=== PATIENT | male | born 1995 | race Asian ===

== ENCOUNTER 2017-03-26 20:55 | Emergency (ER) | payer OTHER ==
[2017-03-26 21:05] VITALS: TEMP 36.3
[2017-03-26 21:51] LABS: BASO % 0.2 %; BASO ABS # 0.03 K/uL (0-0.2); COMPLETE YES; EOS % 0.1 %; HEMATOCRIT 46.7 % (42-52); IG% 0.4 %; LYMPH % 12.9 %; LYMPH ABS # 2.01 K/uL (1.2-3.4); MEAN CELL VOLUME 85.1 fL (80-100); MEAN CORPUSCULAR HEMOGLOBIN 29.5 pg (25-34); MEAN CORPUSCULAR HGB CONC 34.7 g/dl (32-36); MEAN PLATELET VOLUME 10.2 fL (7.4-10.4); MONO % 4.2 %; NEUT % 82.2 %; PLATELET COUNT 246 K/uL (130-400); RED BLOOD COUNT 5.49 M/uL (4.7-6.1); WHITE BLOOD COUNT 15.62 K/uL (4.8-10.8)
[2017-03-26] MEDS ORDERED: HALOPERIDOL LACTATE 5 MG/ML 1 ML VIAL IM STA (21:56)
[2017-03-26] MEDS ORDERED: LORAZEPAM 2 MG/ML 1 ML VIAL IM STA (21:56)
--- NOTE | 2017-03-26 21:59 | EMERGENCY ROOM VISIT NOTE ---
History Report prepared by Roel: Ilir Murcia Under the Supervision of: Dr. Hollis Galvin M.D. First contact with patient: 21:46 Chief Complaint: MENTAL HEALTH EVALUATION Stated Complaint: MENTAL HEALTH, POSS OVERDOSE History of Present Illness The patient is a 21 year old male who presents to the Emergency Room for a mental health evaluation. The patient states, "I am a hero." He asks a lot of questions but refuses to answer any. HPI limited secondary to the patient's poor cooperation. case management Source of History: patient History Limited By: poor cooperation Review of Systems Limited secondary to the patient's poor cooperation. Past Medical & Surgical Unobtainable secondary to the patient's poor cooperation. Family History Unobtainable secondary to the patient's poor cooperation. Social History Smoking Status: Unknown if Ever Smoked Unobtainable secondary to the patient's poor cooperation. Current/Historical Medications Unable to Obtain Active Prescriptions or Reported Meds Physical Exam Vital Signs Date Time Temp Pulse Resp B/P (MAP) Pulse Ox O2 Delivery O2 Flow Rate FiO2 03/27/17 02:18 77 18 122/55 98 Room Air 03/27/17 00:30 82 14 115/52 96 Room Air 03/26/17 23:38 102 18 128/68 96 Room Air 03/26/17 23:00 104 14 119/61 98 Room Air 03/26/17 21:05 36.3 99 22 122/72 100 Room Air Physical Exam GENERAL: Patient awake, alert, agitated, and has incoherent speech. SKIN: No erythema, pallor, cyanosis or rash HEENT: Normal head, pupils equal, reactive to light and accommodation. EOMI. LUNGS: Clear to auscultation. No wheezes, no rales, no rhonchi. HEART: No murmurs. No gallops. No rubs ABDOMEN: No masses, no rebound, no hepatomegaly or splenomegaly. EXTREMITIES: No signs of trauma or infection. NEUROLOGIC: Cranial nerves II-XII within normal limits. No gross motor sensory function deficits. PSYCHIATRIC: Awake, alert, agitated, and has incoherent speech. Medical Decision & Procedures ER Provider Diagnostic Interpretation: CT Head was negative for acute pathology. Laboratory Results 03/26/17 21:09 Red Blood Count 5.49, Mean Corpuscular Volume 85.1, Mean Corpuscular Hemoglobin 29.5, Mean Corpuscular Hemoglobin Concent 34.7, Mean Platelet Volume 10.2, Neutrophils (%) (Auto) 82.2, Lymphocytes (%) (Auto) 12.9, Monocytes (%) (Auto) 4.2, Eosinophils (%) (Auto) 0.1, Basophils (%) (Auto) 0.2, Neutrophils # (Auto) 12.85, Lymphocytes # (Auto) 2.01, Monocytes # (Auto) 0.65, Eosinophils # (Auto) 0.02, Basophils # (Auto) 0.03 03/26/17 21:09 Test 03/26/17 21:09 03/27/17 00:57 White Blood Count 15.62 K/uL (4.8-10.8) Red Blood Count 5.49 M/uL (4.7-6.1) Hemoglobin 16.2 g/dL (14.0-18.0) Hematocrit 46.7 % (42-52) Mean Corpuscular Volume 85.1 fL (80-100) Mean Corpuscular Hemoglobin 29.5 pg (25-34) Mean Corpuscular Hemoglobin Concent 34.7 g/dl (32-36) Platelet Count 246 K/uL (130-400) Mean Platelet Volume 10.2 fL (7.4-10.4) Neutrophils (%) (Auto) 82.2 % Lymphocytes (%) (Auto) 12.9 % Monocytes (%) (Auto) 4.2 % Eosinophils (%) (Auto) 0.1 % Basophils (%) (Auto) 0.2 % Neutrophils # (Auto) 12.85 K/uL (1.4-6.5) Lymphocytes # (Auto) 2.01 K/uL (1.2-3.4) Monocytes # (Auto) 0.65 K/uL (0.11-0.59) Eosinophils # (Auto) 0.02 K/uL (0-0.5) Basophils # (Auto) 0.03 K/uL (0-0.2) RDW Standard Deviation 40.0 fL (36.4-46.3) RDW Coefficient of Variation 12.9 % (11.5-14.5) Immature Granulocyte % (Auto) 0.4 % Immature Granulocyte # (Auto) 0.06 K/uL (0.00-0.02) Anion Gap 15.0 mmol/L (3-11) Estimated GFR () 112.6 Estimated GFR (Non- 97.2 BUN/Creatinine Ratio 13.3 (10-20) Calcium Level 10.2 mg/dl (8.5-10.1) Total Bilirubin 0.9 mg/dl (0.2-1) Aspartate Amino Transf (AST/SGOT) 80 U/L (15-37) Alanine Aminotransferase (ALT/SGPT) 87 U/L (12-78) Alkaline Phosphatase 75 U/L (45-117) Total Protein 8.7 gm/dl (6.4-8.2) Albumin 4.7 gm/dl (3.4-5.0) Globulin 4.0 gm/dl (2.5-4.0) Albumin/Globulin Ratio 1.2 (0.9-2) Thyroid Stimulating Hormone (TSH) 0.486 uIu/ml (0.300-4.500) Salicylates Level < 1.7 mg/dl (2.8-20) Acetaminophen Level < 2 ug/ml (10-30) Ethyl Alcohol mg/dL < 3.0 mg/dl (0-3) Urine Color YELLOW Urine Appearance CLEAR (CLEAR) Urine pH 7.5 (4.5-7.5) Urine Specific [place] 1.017 (1.000-1.030) Urine Protein NEG (NEG) Urine Glucose (UA) NEG (NEG) Urine Ketones 2+ (NEG) Urine Occult Blood NEG (NEG) Urine Nitrite NEG (NEG) Urine Bilirubin NEG (NEG) Urine Urobilinogen NEG (NEG) Urine Leukocyte Esterase TRACE (NEG) Urine WBC (Auto) 1-5 /hpf (0-5) Urine RBC (Auto) 0-4 /hpf (0-4) Urine Hyaline Casts (Auto) 0 /lpf (0-5) Urine Epithelial Cells (Auto) >30 /lpf (0-5) Urine Bacteria (Auto) NEG (NEG) Urine Renal Epithelial Cells /lpf (0-5) Urine Mucus PRESENT (NONE PRSENT) Urine Opiates Screen NEG (NEG) Urine Methadone, Qualitative NEG (NEG) Urine Barbiturates NEG (NEG) Urine Phencyclidine (PCP) Level NEG (NEG) Ur Amphetamine/Methamphetamine NEG (NEG) MDMA (Ecstasy) Screen NEG (NEG) Urine Benzodiazepines Screen NEG (NEG) Urine Cocaine Metabolite NEG (NEG) Urine Marijuana (THC) NEG (NEG) Laboratory results as stated above per my review. Medications Administered Medications (Trade) Dose Ordered Sig/Mckayla Route Start Time Stop Time Status Last Admin Dose Admin Haloperidol Lactate (Haldol Inj) 5 mg NOW STAT IM 03/26/17 21:56 03/26/17 21:59 DC 03/26/17 22:23 5 MG Lorazepam (Ativan Inj) 2 mg NOW STAT IM 03/26/17 21:56 03/26/17 21:59 DC 03/26/17 22:23 2 MG ED Course 2146: Past medical records reviewed. The patient was evaluated in room A08. A complete history and physical examination was performed. 2155: Ordered Lorazepam 2mg IM, Haloperidol Lactate 5mg IM 0055: I reevaluated the patient. He is still sleeping peacefully. 0200: The patient was signed out to Dr. Rutledge at the change of shift. Medical Decision I considered multiple diagnoses including: toxic ingestion from psychedelics, GHB, amphetamines, acute psychosis. The patient arrives with acute psychotic type behavior. This is most consistent with PCP, LSD or other amphetamine-like drugs. The patient apparently had some suicidal talk earlier but I did not witness or hear any suicidal statements. The patient does not answer questions appropriately. He appears to be hallucinating. Patient became violent while here in the ED and required physical restraints followed by chemical restraints. I reexamined the patient but he remained lethargic and unable to answer questions. The patient will require further evaluation. In the meantime, I signed the patient off to Dr. Rutledge at approximately 0230. Impression Primary Impression: Altered mental status, unspecified Scribe Attestation The scribe's documentation has been prepared under my direction and personally reviewed by me in its entirety. I confirm that the note above accurately reflects all work, treatment, procedures, and medical decision making performed by me. Departure Information Dispostion Still a Patient Prescriptions Unable to Obtain Active Prescriptions or Reported Meds Referrals No Doctor, Assigned (PCP) Forms HOME CARE DOCUMENTATION FORM, IMPORTANT VISIT INFORMATION Patient Instructions My [facility]
[2017-03-26 22:00] LABS: ALT/SGPT 87 U/L (12-78); BLOOD UREA NITROGEN 15 mg/dl (7-18); BUN/CREATININE RATIO 13.3 (10-20); CALCIUM 10.2 mg/dl (8.5-10.1); CARBON DIOXIDE 22 mmol/L (21-32); CHLORIDE 100 mmol/L (98-107); CREATININE 1.09 mg/dl (0.60-1.40); GLUCOSE 123 mg/dl (70-99); POTASSIUM 3.4 mmol/L (3.5-5.1); SODIUM 137 mmol/L (136-145)
[2017-03-26 22:04] LABS: ACETAMINOPHEN < 2 ug/ml (10-30)
[2017-03-26 22:11] LABS: ALB/GLOB RATIO 1.2 (0.9-2); ALKALINE PHOSPHATASE 75 U/L (45-117); AST/SGOT 80 U/L (15-37); THYROID STIMULATING HORMONE 0.486 uIu/ml (0.300-4.500)
[2017-03-27 01:16] LABS: URINE APPEARANCE CLEAR (CLEAR); URINE BILIRUBIN NEG (NEG); URINE COLOR YELLOW; URINE EPITHELIAL CELL AUTO >30 /lpf (0-5); URINE NITRITE NEG (NEG); URINE PH 7.5 (4.5-7.5); URINE SPECIFIC GRAVITY 1.017 (1.000-1.030); UROBILINOGEN NEG (NEG); ZZUR CULT IF INDIC CLEAN CATCH NO
[2017-03-27 01:19] LABS: MANUAL MICROSCOPIC REQUIRED? NO; REVIEW REQ? YES
[2017-03-27 01:41] LABS: URINE MUCUS PRESENT (NONE PRSENT)
[2017-03-27 01:43] LABS: BENZODIAZEPINE, URINE NEG (NEG); COCAINE,URINE NEG (NEG); PHENCYCLIDINE, URINE NEG (NEG)
--- NOTE | 2017-03-27 06:34 | DIAGNOSTIC IMAGING REPORT ---
CT HEAD WITHOUT CONTRAST (CT) CLINICAL HISTORY: altered mental status COMPARISON STUDY: No previous studies for comparison. TECHNIQUE: Axial CT of the brain is performed from the vertex to the skull base. IV contrast was not administered for this examination. A dose lowering technique was utilized adhering to the principles of ALARA. CT DOSE: 614.27 mGy.cm FINDINGS: No intra or extra-axial mass lesions are visualized. There is no CT evidence of acute cortical infarction. There is no evidence of midline shift. There is no acute hemorrhage. No calvarial fractures are visualized. There is no evidence of pathologic ventricular dilatation. There is no evidence of acute sinusitis IMPRESSION: Normal noncontrast head CT. Electronically signed by: Moncho Brumfield M.D. 03/27/2017 6:32 AM Dictated Date/Time: 03/27/2017 6:31 AM
--- NOTE | 2017-03-27 07:03 | EMERGENCY ROOM VISIT NOTE ---
ED Visit Note First contact with patient: 07:00 The case was signed out to me at change of shift awaiting further evaluation by psychiatry. Staff could not arouse the patient. They allowed him to sleep and he will be fully evaluated when they can wake him in the morning. The case was signed out to Dr. Eastman at change of shift.
--- NOTE | 2017-03-27 11:21 | EMERGENCY ROOM VISIT NOTE ---
ED Visit Note The patient was signed out to me awaiting psychiatric evaluation. The patient minutes using LSD yesterday afternoon. His behavior last evening was consistent with this. He currently denies being suicidal or homicidal. He agrees to avoiding illicit drugs and nonprescribed medications. He will follow- up with [facility]. He is felt to be stable for discharge and outpatient follow- up.
[2017-03-27 11:56] VITALS: BP 124/78; PULSE 102; O2SAT 96
== END 2017-03-27 11:57 | disposition home or self-care (01) ==
LOC: EDBD 20:55 → C.EDA 20:57
DX: R41.82 Altered mental status, unspecified (principal); Z78.1 Physical restraint status